=== PATIENT | female | born 1970 | race Hispanic/Latino ===

== ENCOUNTER 2018-01-18 11:43 | Outpatient (CLI) | payer OTHER | END 2018-01-18 11:44 | disposition home or self-care (01) | LOC: LABHHL 11:43 | PROVIDERS: ATTEND Surgery | DX: N63.10 Unspecified lump in the right breast, unspecified quadrant (principal) | CPT/HCPCS: 88305 ==

== ENCOUNTER 2018-02-13 14:39 | Outpatient (CLI) | payer OTHER ==
--- NOTE | 2018-02-15 11:38 | Magnetic Resonance Report ---
BILATERAL BREAST MRI WITHOUT AND WITH CONTRAST: 02/13/18 14:39:00 CLINICAL: Very dense breasts on mammography and status post recent biopsy of a benign fibroadenoma of the right breast at 1 o'clock 16 cm from the nipple. COMPARISON:01/10/18 bilateral mammogram. TECHNIQUE: Axial 1.0-mm T1 without, axial high resolution 2.0-mm T2 and axial 1.0-mm dynamic Vibrant high-resolution postcontrast T1 fat saturation sequences on a 1.5 Deanna magnet. The examination was performed with an 8 channel dedicated [place] breast coil. Post processing with CAD and subtraction was performed on an Dimmi workstation. 20 cc of Multihance was injected without incident for the contrast portion of the exam. Consent was obtained prior to the administration of the contrast. FINDINGS: Right: Moderate background parenchymal enhancement. Lesion 1 is a solid oval enhancing mass in the upper-outer quadrant at 1 o'clock 16 cm from the nipple. It contains a biopsy clip and corresponds to the recently biopsied fibroadenoma. Measures 2.8 x 2.0 x 1.5 cm and demonstrates heterogeneous enhancement with mixed kinetics, 161% peak enhancement, 25% type I persistent and 75% type II plateau and 0% type III washout waveforms. Lesion 2 is segmental clumped non-Mass enhancement at 12:30 o'clock 15 cm from the nipple measuring 5.2 x 3.1 x 2.5 cm. It demonstrates heterogeneous enhancement with mixed kinetics, 213% peak enhancement, 58% type I persistent, 41% type II plateau and 1% type III washout waveforms. No other mass or suspicious enhancement of the right breast. No suspicious right axillary or right internal mammary lymph nodes. Left: Moderate background parenchymal enhancement. No mass or suspicious enhancement. No suspicious left axillary or left internal mammary lymph nodes. IMPRESSION: 1. Suspicious segmental non-Mass enhancement of the right breast at 12:30 o'clock 15 cm from the nipple. Recommend MRI guided needle biopsy to exclude malignancy. 2. A benign 2.8 cm fibroadenoma at 1 o'clock right breast 6 cm from the nipple. 3. Negative left breast. 4. No suspicious lymph nodes. RIGHT BI-RADS 4 -- Suspicious LEFT BI-RADS 1 -- Negative
== END 2018-02-13 14:40 | disposition home or self-care (01) ==
LOC: SPVIMAG 14:39
PROVIDERS: ATTEND Surgery
DX: N60.21 Fibroadenosis of right breast (principal); R92.2 Inconclusive mammogram; D24.1 Benign neoplasm of right breast
CPT/HCPCS: A9577; C8908; 77059

== ENCOUNTER 2018-05-01 08:49 | Observation (INO) | payer OTHER ==
[2018-05-01] MEDS ORDERED: ANCEF/STERILE WATER 2 GM/20 ML IV NR (12:00)
[2018-05-01] MEDS ORDERED: VERSED IV NR (13:00)
[2018-05-01] MEDS ORDERED: LACTATED RINGERS 1,000 ML IV SCH ×2 (13:00→20:00)
[2018-05-01] MEDS ORDERED: DILAUDID ONE (14:14)
[2018-05-01] MEDS ORDERED: DIPRIVAN 10 MG/ML IV ONE (14:14)
--- NOTE | 2018-05-01 14:30 | Anesthesia Consultation ---
Anesthesia Consult and Med Hx Date of service: 05/01/18 - Airway Anesthetic Teeth Evaluation: Poor (few chipped and missing teeth) ROM Head & Neck: Adequate Mental/Hyoid Distance: Adequate Mallampati Class: Class II Intubation Access Assessment: Probably Good - Pulmonary Exam CTA: Yes - Cardiac Exam Cardiac Exam: RRR - Pre-Operative Health Status ASA Pre-Surgery Classification: ASA2 Proposed Anesthetic Plan: General - Pre-Anesthesia Comment Pre-Anesthesia Comments: Patient tolerates 6 METs. No chest pain or SOB. No cold or flu. No N/V. Patient has had GA once in . No difficulty with anesthesia then. No family history of difficulty wtih anesthesia - Pulmonary Hx Smoking: No Hx Asthma: No Hx Respiratory Symptoms: No - Cardiovascular System Hx Hypertension: No Hx Coronary Artery Disease: No - Central Nervous System Hx Seizures: No CVA: No Hx Psychiatric Problems: No - Endocrine Hx Renal Disease: No - Hematic Hx Anemia: Yes - Other Systems Hx Alcohol Use: Yes (OCCAS ON WEEKENDS) Hx Substance Use: No Hx Cancer: No
--- NOTE | 2018-05-01 14:31 | Anesthesia Day of Surgery ---
Anesthesia Day of Surgery - Day of Surgery Patient Examined: Yes Patient H&P Reviewed: Yes Patient is NPO: Yes
[2018-05-01] MEDS ORDERED: DECADRON ONE (15:21)
[2018-05-01] MEDS ORDERED: XYLOCAINE MPF 2% ONE (15:21)
[2018-05-01] MEDS ORDERED: ZEMURON IV ONE (15:21)
[2018-05-01] MEDS ORDERED: ZOFRAN ONE (15:21)
[2018-05-01] MEDS ORDERED: XYLOCAINE 1% 20 mL ONE (15:43)
[2018-05-01] MEDS ORDERED: MARCAINE 0.25% INFILTRATI ONE (15:44)
[2018-05-01] MEDS ORDERED: SUBLIMAZE ONE (15:48)
[2018-05-01] MEDS ORDERED: NACL 0.9% IR ONE (15:53)
[2018-05-01] MEDS ORDERED: WATER FOR IRRIG STERILE IR ONE (15:53)
--- NOTE | 2018-05-01 16:16 | Operative Report ---
Operative Report Operative Report: Date of Service: May 01, 2018 Preoperative diagnosis: Right breast fibroadenoma of the upper inner quadrant Postoperative diagnosis: Same Procedure: Right breast fibroadenoma excisional biopsy of the upper inner quadrant Surgeon: Rosie Ahuja M.D. Findings: Known right breast fibroadenoma at the 1 o'clock position 16 cm from the nipple with excisional biopsy performed Complications: None Drains: None Estimated blood loss: Minimal Disposition: Dr. Silva proceeded with bilateral reduction mammoplasty Indication for operative procedure: This is a 47-year-old lady with known right breast fibroadenoma at the 1:00 position 16 cm from the nipple. Patient wished to proceed with right breast excisional biopsy of fibroadenoma given symptomatic pain, as well as bilateral reduction mammoplasty. Patient wished to proceed with the above procedure. The patient was procedure in detail: The patient was taken to the operating room and was laid supine. General anesthesia was administered. Right breast fibroadenoma was palpable at the 1o'clock position 16 cm from the nipple and confirmed under ultrasound. Bilateral breast was prepped and draped in the normal sterile operative fashion. Timeout was performed. A superior breast incision was made with a 15 blade knife of the medial aspect of the reduction mammoplasty incision with dissection taken down to the subcutaneous tissues. Superior flap was raised and the fibroadenoma was encountered and was dissected free with the aid of the Bovie cautery. The specimen was sent to pathology. Hemostasis was then obtained using the Bovie cautery. Dr. Silva then continued with bilateral reduction mammoplasty.
[2018-05-01] MEDS ORDERED: BLOXIVERZ ONE (17:04)
[2018-05-01] MEDS ORDERED: ROBINUL ONE (17:04)
[2018-05-01 18:31] LABS: Basophils % (Auto) 0.3 % (0.0-1.8); Eosinophils % (Auto) 0.2 % (0.0-4.3); Hematocrit 26.5 % (30.3-42.9); Hemoglobin 8.3 gm/dl (10.1-14.3); Lymphocytes # (Auto) 0.7 K/mm3 (1.2-5.4); Lymphocytes % (Auto) 9.8 % (13.4-35.0); Mean Corpuscular HGB Conc 31 % (30-34); Monocytes # (Auto) 0.2 K/mm3 (0.0-0.8); Monocytes % (Auto) 2.4 % (0.0-7.3); Platelet Count 385 K/mm3 (140-440); Red Blood Count 4.05 M/mm3 (3.65-5.03); Red Cell Distribution Width 18.6 % (13.2-15.2)
[2018-05-01 18:32] LABS: Mean Corpuscular Hemoglobin 20 pg (28-32); Mean Corpuscular Volume 65 fl (79-97)
[2018-05-01 18:40] LABS: Partial Thromboplastin Time 31.8 Sec. (24.2-36.6)
[2018-05-01 18:44] LABS: Alanine Aminotransferase 11 units/L (7-56); Albumin 3.9 g/dL (3.9-5); BUN/Creatinine Ratio 17; Blood Urea Nitrogen 10 mg/dL (7-17); Calcium 10.9 mg/dL (8.4-10.2); Hemolysis Index 16
[2018-05-01] MEDS ORDERED: NITRO-BID 2% TP ONE (19:13)
[2018-05-01] MEDS ORDERED: TYLENOL PO PRN (19:38)
[2018-05-01] MEDS ORDERED: REGLAN PO PRN (19:38)
[2018-05-01] MEDS ORDERED: PERCOCET 5/325 PO PRN (19:38)
[2018-05-01] MEDS ORDERED: SODIUM CHLORIDE FLUSH SYRINGE 10 ML IV PRN (19:38)
[2018-05-01] MEDS ORDERED: ZOFRAN IV PRN ×2 (19:38→20:33)
[2018-05-01] MEDS ORDERED: BENADRYL PO PRN (19:38)
--- NOTE | 2018-05-01 19:38 | Post Operative Note ---
Pre-op diagnosis: right breast mass Post-op diagnosis: same Findings: right breast defect Procedure: bilateral oncoplastic reductions Anesthesia: GETA Surgeon: JOSE MALDONADO Estimated blood loss: other (700cc) Pathology: list (bilateral breast tissue) Specimen disposition: to lab Condition: stable Disposition: PACU
[2018-05-01] MEDS ORDERED: DEMEROL ONE (19:50)
[2018-05-01] MEDS ORDERED: NARCAN 0.4 MG/1 ML IV PRN (20:33)
[2018-05-01] MEDS ORDERED: DILAUDID IV PRN ×2 (20:33)
[2018-05-01] MEDS ORDERED: DEMEROL IV PRN (20:33)
[2018-05-01] MEDS ORDERED: NORCO 5/325 PO PRN (20:33)
--- NOTE | 2018-05-01 20:47 | Operative Report ---
PREOPERATIVE DIAGNOSIS: Right breast mass. POSTOPERATIVE DIAGNOSIS: Right breast mass. PROCEDURE: Bilateral oncoplastic breast reductions, CPT CODE 04722-54. SURGEON: William Negron MD BLACK OXIDE COATING EQUIPMENT TENDER: None. ANESTHESIA: General. OPERATIVE INDICATIONS: This is a 47-year-old female with a history of a right-sided breast mass. She was referred to me by Dr. Ahuja due to the fact that Dr. Ahuja had to remove a large mass in the right breast and was likely going to leave the patient with an upper pole defect due to the resection. It is unclear if the mass was malignant or not and therefore, we discussed with the patient possible breast conservation using bilateral oncoplastic breast reduction technique. The patient understood the risks and benefits of surgery including bleeding, infection, loss of nipple sensation, loss of nipple tissue, wound healing complications. DESCRIPTION OF PROCEDURE: With informed consent obtained, the patient was brought to the operating room and placed supine on the operating table. Preoperative antibiotics and general anesthesia were administered. The patient was prepped and draped in the usual sterile fashion and timeout was called verifying the patient, operation being performed, and the site of the operation. I began on the right side repairing the right breast for Dr. Ahuja. The patient was marked in preoperative holding area for a Scott pattern breast reduction due to location of the tumor and the upper inner quadrant of the right breast, a superior medial pedicle was not an option. We therefore decided a marker for an inferior pedicle. The patient also had significant asymmetry with the right breast being almost 50-75% larger than the left breast. So, we had to take that into account in the reduction, so I started on the right side. I took a 42 mm cookie cutter, resized the areola, and then deepithelialized the inferior pedicle. I then made the upper Scott pattern incisions for Dr. Ahuja and gave her access, so she could dissect down and take out the fibroadenoma in the upper inner quadrant, which she did. While she was doing that, I turned my attention to the left breast. I resized the areola, de-epithelialized the inferior pedicle, developed down to chest wall and then made my superior Scott pattern incisions, elevated flaps superiorly and then performed a breast reduction, removing the excess medial, lateral, and superior and central breast tissue. Once that was done, I turned my attention to the right side. We did the same thing on the right side, resized the areola, de-epithelialized the pedicle, developed down to chest wall, and then resected the additional medial, lateral, and superior breast tissue after elevating the superior flaps. The defect that Dr. Ahuja created was in the upper inner quadrant and we are going to be able to rotate the pedicle up into that area in order to fill in the defect. Of note, the patient had significant bleeding and clotting issue during the case. There are multiple times that I had to irrigate, achieve hemostasis, close the breast, and then when I came back 10-15 minutes later, there was bleeding again. We had multiple attempts using both thrombin powders and cellulose powders on both breasts to try to stop bleeding; multiple times cauterization, irrigation and nothing seems to really stop the bleeding. Blood loss was continuing to increase throughout the case and I had anesthesia order some labs on her. Her hematocrit was low at 26, but we did not have a baseline to compare to. Coags were normal, but even anesthesia noted that with trying to attempt her IV placement that she would bleed and did not really clot adequately. For this reason, I became a little bit concerned and decided that we would probably keep the patient overnight for observation and repeat of her blood work in the morning to make sure that her bleeding was controlled, we would also have to discuss with her if there was some underlying bleeding disorder that was not mentioned in her initial evaluation. So, we went ahead and once we finished the reductions, I injected the pectoralis major muscles with Marcaine for postoperative pain relief. We temporarily closed the breast, sat the patient up, made additional markings for the nipple areola complex and any additional tailor tacking and skin resection needed to be done. We laid the patient back down, performed those additional resections, again opened the breast, tried to achieve hemostasis, and then proceeded with closure. I decided to place a drain on both sides, 19-Slovenian Zak drain just to help us monitor blood loss postoperatively if she continued to bleed. We brought those out the lateral incisions. We then began closure, I used 2-0 Vicryl to close the T junction and the upper T junction with the nipple areolar complex. I then used 3-0 Monocryl deep dermals to inset the nipple areola complex and vertical limb. I then used a 4-0 PDS as running subcuticular on the circumvertical and a 2-0 Monocryl barbed suture on the horizontal incision. Once we got everything close, the oozing was slightly improved, but she was still oozing through her incisions. I tried to reinforce the nipple areola complex with a running chromic suture, which seemed to help. Also, I noted that the right nipple was a little bit dusky compared to the left nipple, which had excellent perfusion and so I went ahead and placed some nitro paste on the right nipple with a Tegaderm and to try to see if we can improve some of the flow to that nipple. We then placed Dermabond on the incisions and then we wrapped the patient snugly with an Aaron bandage to try to get some compression overnight. She was then awakened from general anesthesia, transferred to PACU in stable condition. The plan will be to admit her overnight, recheck her labs in the morning, and assess her breast to see if there has been continued bleeding and then go from there. ESTIMATED BLOOD LOSS: 700 mL. IV FLUIDS: 1700 mL. SPECIMENS: Right breast 1260 g removed. Left breast 720 g removed. COMPLICATIONS: Moderate amount of bleeding intraoperative, reason unknown. JOB# [id number] LENNOX/CHENTE
[2018-05-01] MEDS ORDERED: COLACE PO SCH (22:00)
[2018-05-02] MEDS: NEURONTIN PO SCH ×2 (02:00→11:36)
[2018-05-02] MEDS: ANCEF/NS 1 GM/50 ML 1 GM/50 ML BAG IV SCH ×2 (02:00→10:00)
[2018-05-02 05:50] LABS: Hematocrit 23.1 % (30.3-42.9); Hemoglobin 7.2 gm/dl (10.1-14.3); Mean Corpuscular HGB Conc 31 % (30-34); Platelet Count 352 K/mm3 (140-440); Red Blood Count 3.53 M/mm3 (3.65-5.03); Red Cell Distribution Width 18.6 % (13.2-15.2)
[2018-05-02 05:54] LABS: Mean Corpuscular Hemoglobin 20 pg (28-32); Mean Corpuscular Volume 66 fl (79-97)
--- NOTE | 2018-05-02 07:20 | Post Anesthesia Evaluation ---
- Post Anesthesia Evaluation Patient Participated: Yes Airway Patent: Yes Stable Respiratory Function: Yes Nausea/Vomiting: No Temp > 96.8F: Yes Pain Manageable: Yes Adequeate Hydration: Yes Anesthesia Complications: No Block Receding Appropriately: Not Applicable Patient on Ventilator: No
[2018-05-02 10:11] VITALS: BP 117/66
--- NOTE | 2018-05-02 13:17 | Discharge Summary ---
Providers - Providers Date of Admission: 05/01/18 19:38 Date of discharge: 05/02/18 Attending physician: JOSE MALDONADO Primary care physician: KATIE FINCH MD Hospitalization Condition: Fair Hospital course: Patient admitted for observation because of concerning bleeding during surgery. Overnight was stable, drain output appropriate, light staining of dressings. Hct dropped about 2 points. HD stable throughout and making urine. Decision to send patient home with outpatient Heme follow up due to concern about her clotting issues. She admits to having clotting issues as well as her sister and mother and daughter. Disposition: DC-01 TO HOME OR SELFCARE - Discharge Diagnoses (1) Postoperative bleeding from incision Status: Acute Core Measure Documentation - Palliative Care Palliative Care/ Comfort Measures: Not Applicable - Core Measures Any of the following diagnoses?: none Exam - Physical Exam Narrative exam: BREASTS: still with some slow minor oozing from the incisions. No hematoma. Drains are serosang. Left NAC is well perfused, right NAC has some venous congestion but is warm to the touch. - Constitutional Vitals: Temp Pulse Resp BP Pulse Ox 98.3 F 79 18 117/66 92 05/02/18 07:46 05/02/18 07:47 05/02/18 07:46 05/02/18 07:46 05/02/18 07:47 General appearance: Present: no acute distress Plan Activity: other (no lifting more than 5 lbs) Weight Bearing Status: Full Weight Bearing Diet: regular Wound: other (LESLEY for 24 hours then breast binder or support bra) Follow up with: KATIE FINCH MD [Primary Care Provider] - 7 Days JOSE MALDONADO MD [Staff Physician] - 7 Days
== END 2018-05-02 14:30 | disposition home or self-care (01) ==
LOC: OR 08:49 → OB 19:38
PROVIDERS: ADMIT Plastic Surgery; ATTEND Plastic Surgery
DX: N63.10 Unspecified lump in the right breast, unspecified quadrant (principal); D24.1 Benign neoplasm of right breast
CPT/HCPCS: 19101; 19366; 36415; 80053; 81025; 85025; 85027; 85610; 85730; 86850; 86900; 86901; 88307; 88309; G0378; J0690; J1100; J1170; J2175; J2250; J2405; J2704; J2710; J3010; J7120; 96365; 96366; 96375